=== PATIENT | male | born 1955 | race African-American/Black ===

== ENCOUNTER 2017-08-14 17:08 | Emergency (ER) | payer OTHER | END 2017-08-14 18:45 | disposition home or self-care (01) | LOC: ER 17:08 | DX: S16.1XXA Strain of muscle, fascia and tendon at neck level, initial encounter (principal); S09.90XA Unspecified injury of head, initial encounter; I10 Essential (primary) hypertension; E11.9 Type 2 diabetes mellitus without complications; Z88.0 Allergy status to penicillin; V43.52XA Car driver injured in collision with other type car in traffic accident, initial encounter; Y93.I9 Activity, other involving external motion; Y92.410 Unspecified street and highway as the place of occurrence of the external cause; Y99.8 Other external cause status | CPT/HCPCS: 70450; 72125; 99284-25 ==